=== PATIENT | male | born 2000 | race Caucasian/White ===

== ENCOUNTER 2021-02-07 11:18 | Emergency (ER) | payer OTHER ==
[~2021-02-07] VITALS: Ht 172.7 cm; Wt 75.0 kg
[2021-02-07 11:25] VITALS: BP 111/71
[2021-02-07] MEDS ORDERED: ACETAMINOPHEN 500 MG TABLET PO ONE (12:15)
== END 2021-02-07 13:36 | disposition home or self-care (01) ==
LOC: EMS 11:26
DX: S62.306A Unspecified fracture of fifth metacarpal bone, right hand, initial encounter for closed fracture (principal); F17.210 Nicotine dependence, cigarettes, uncomplicated; W22.8XXA Striking against or struck by other objects, initial encounter; Y93.89 Activity, other specified; Y92.89 Other specified places as the place of occurrence of the external cause; Y99.8 Other external cause status
CPT/HCPCS: 99284; 73110-TC; 73130-TC; Z7502; Z7610

== ENCOUNTER 2022-07-22 13:59 | Emergency (ER) | payer OTHER ==
[~2022-07-22] VITALS: Ht 172.7 cm; Wt 75.0 kg
[2022-07-22 15:57] VITALS: BP 126/77
[2022-07-22] MEDS ORDERED: IBUP-1492 PO (15:58)
[2022-07-22] MEDS ORDERED: AMOX1TAB16 PO (15:58)
[2022-07-22] MEDS ORDERED: PERTUSS(ACELL),DIPH,TET VAC/PF 0.5 ML SYRINGE IM. ONE (16:00)
== END 2022-07-22 16:14 | disposition home or self-care (01) ==
LOC: EMS 14:04
DX: S60.222A Contusion of left hand, initial encounter (principal); S61.452A Open bite of left hand, initial encounter; F17.210 Nicotine dependence, cigarettes, uncomplicated; Y04.1XXA Assault by human bite, initial encounter; Y93.89 Activity, other specified; Y92.89 Other specified places as the place of occurrence of the external cause; Y99.8 Other external cause status
CPT/HCPCS: 90471; 90715; 96372; 99283